=== PATIENT | male | born 1990 | race African-American/Black ===

== ENCOUNTER 2020-09-18 16:57 | Emergency (ER) | payer SELFPAY ==
[~2020-09-18] VITALS: Ht 185.4 cm; Wt 75.4 kg
[2020-09-18] MEDS ORDERED: CEFTRIAXONE SOD 1 GM VIAL IM ONE (20:15)
[2020-09-18] MEDS ORDERED: AZITHROMYCIN 250 MG TAB PO ONE (20:15)
[2020-09-18] MEDS ORDERED: ONDANSETRON HCL 4 MG ORAL DISINTEGRATING TAB PO ONE (20:15)
[2020-09-18] MEDS ORDERED: METRONIDAZOLE500 MG PO (20:18)
[2020-09-18] MEDS ORDERED: ONDANSETRON HCL 4 MG ORAL DISINTEGRATING TAB ONE (20:20)
[2020-09-18] MEDS ORDERED: LIDOCAINE HCL 1% LOCAL INJ 20 ML VIAL ONE (20:20)
[2020-09-18] MEDS ORDERED: CEFTRIAXONE SOD 1 GM VIAL ONE (20:20)
[2020-09-18] MEDS ORDERED: AZITHROMYCIN 250 MG TAB ONE (20:20)
[2020-09-18 20:31] VITALS: BP 116/80
== END 2020-09-18 20:31 | disposition home or self-care (01) ==
LOC: EDBD 16:57 → FSED 17:55
DX: T74.21XA Adult sexual abuse, confirmed, initial encounter (principal)
CPT/HCPCS: 96372; 99284; J0696; J2001; Q0162